=== PATIENT | female | born 1970 ===

== ENCOUNTER 2016-12-08 10:33 | Emergency (ER) | payer MEDICAID ==
--- NOTE | 2016-12-08 10:46 | ED PDOC ---
HPI: Psych/Substance Abuse Time Seen by Provider: 12/08/16 10:42 Chief Complaint (Nursing): Anxiety Chief Complaint (Provider): anxiety History Per: Patient, Family (Patient's daughter is at bedside, translating in Urdu for patient, at patient's request. ) Additional Complaint(s): 46 year old female with history of anxiety presents with dizziness, nausea and palpitations that started when she was driving earlier today. Patient states that she woke up with anxiety and took 0.5 mg tablet of lorazepam. As she was driving to work she started to develop dizziness, nausea and palpitations. Upon arrival she feels slightly dizzy but states that nausea and palpitations have subsided. Patient denies any chest pain. She also has mild pain to left leg, denies any trauma or injury. Associated fever or chills, no headache or vision changes. Patient is not sure what tripped anxiety as of waking up this morning. She denies any suicidal or homicidal ideation. Past Medical History Reviewed: Historical Data, Nursing Documentation, Vital Signs Vital Signs: Last Vital Signs Temp 98.1 F 12/08/16 10:34 Pulse 108 H 12/08/16 10:34 Resp 19 12/08/16 10:34 BP 158/96 H 12/08/16 10:34 Pulse Ox 98 12/08/16 10:34 - Medical History PMH: Anxiety - Surgical History Surgical History: No Surg Hx - Family History Family History: States: No Known Family Hx - Living Arrangements Living Arrangements: With Family - Social History Current smoker - smoking cessation education provided: No Alcohol: None Drugs: Denies - Home Medications Home Medications: Ambulatory Orders Medication Instructions Recorded LORazepam [Ativan] 0.5 mg PO DAILY PRN 12/08/16 - Allergies Allergies/Adverse Reactions: Allergies Allergy/AdvReac Type Severity Reaction Status Date / Time No Known Allergies Allergy Verified 12/08/16 11:03 Review of Systems ROS Statement: Except As Marked, All Systems Reviewed And Found Negative Constitutional: Negative for: Fever, Chills, Weakness Eyes: Negative for: Vision Change Cardiovascular: Positive for: Palpitations. Negative for: Chest Pain Respiratory: Negative for: Cough, Shortness of Breath Gastrointestinal: Positive for: Nausea Neurological: Positive for: Dizziness. Negative for: Headache Psych: Positive for: Anxiety. Negative for: Suicidal ideation Physical Exam - Reviewed Nursing Documentation Reviewed: Yes Vital Signs Reviewed: Yes - Physical Exam Skin: Positive for: Normal Color. Negative for: Rash Eye Exam: Positive for: Normal appearance, EOMI, PERRL Neck: Positive for: Painless ROM Cardiovascular/Chest: Positive for: Regular Rate, Rhythm Respiratory: Positive for: Normal Breath Sounds Back: Positive for: Vertebral Tenderness Extremity: Positive for: Normal ROM. Negative for: Pedal Edema, Calf Tenderness , Deformity, Swelling Neurologic/Psych: Positive for: Alert, Oriented - Laboratory Results Result Diagrams: 12/08/16 11:30 12/08/16 11:30 - ECG Interpretation Of ECG: NSR 69 bpm, no acute finding, reviewed by PA and ED attending. O2 Sat by Pulse Oximetry: 98 Pulse Ox Interpretation: Normal - Other Rad bedside chest X-Ray: Interpreted by Me, Viewed By Me X-Ray Interpretation: no acute finding Medical Decision Making Medical Decision Makin46 year old with anxiety Plan: CBC CMP Trop CXR EKG IVF 0.5 mg PO ativan Patient was offered crisis consult but she declined, she denies SI/HI. Upon re-evaluation, patient is feeling much better, she states dizziness and palpitations have completely resolved. Patient has ativan that she can take for any further anxiety symptoms. She was advised to take med as directed as needed and to follow up with PMD in 1-2 days. Patient is aware that she can RTED at any time if acutely worse. Repeat vitals prior to d/c are improved. Disposition - Clinical Impression Clinical Impression: Anxiety, Anxiety attack - Patient ED Disposition Is Patient to be Admitted: No Counseled Patient/Family Regarding: Studies Performed, Diagnosis, Need For Followup - Disposition Referrals: [facility] [Outside] Disposition: Routine/Home Disposition Time: 14:04 Condition: STABLE Additional Instructions: Rest and drink plenty of fluids. Take ativan as needed. Follow up with primary care doctor in 1-2 days or return any time if acutely worse. Instructions: Panic Attack (ED), Anxiety (ED) Print Language: GERMAN
[2016-12-08] MEDS ORDERED: Sodium Chloride 0.9% 1,000 ML IV STA (11:05)
[2016-12-08 11:56] LABS: BASO % 0.5 % (0.0-2.0); EOS # 0.1 K/uL (0.0-0.7); EOS % 1.2 % (0.0-4.0); HEMATOCRIT 38.7 % (34.0-47.0); LYMPH % 32.2 % (20.0-40.0); MEAN CELL VOLUME 85.1 fl (81.0-99.0); MEAN CORPUSCULAR HEMOGLOBIN 28.8 pg (27.0-31.0); MEAN CORPUSCULAR HGB CONC 33.8 g/dL (33.0-37.0); MEAN PLATELET VOLUME 8.5 fl (7.2-11.7); MONO # 0.5 K/uL (0.0-0.8); MONO % 8.3 % (0.0-10.0); NEUT # 3.6 K/uL (1.8-7.0); NEUT % 57.8 % (50.0-75.0); NRBC % 0.1 % (0.0-0.0); RED CELL DISTRIBUTION WIDTH 14.3 % (11.5-14.5); WHITE BLOOD COUNT 6.2 K/uL (4.8-10.8)
[2016-12-08 12:10] LABS: ALB/GLOB RATIO 1.2 (1.0-2.1); ALKALINE PHOSPHATASE 91 U/L (38-126); ALT/SGPT 47 U/L (9-52); AST/SGOT 44 U/L (14-36); BILIRUBIN,TOTAL 0.5 mg/dl (0.2-1.3); BLOOD UREA NITROGEN 12 mg/dl (7-17); CALCIUM 9.2 mg/dL (8.4-10.2); CARBON DIOXIDE 25 mmol/L (22-30); CHLORIDE 106 mmol/L (98-107); GFR AFRICAN-AMERICAN > 60; GLUCOSE,RANDOM 98 mg/dL (65-105); POTASSIUM 4.3 MMOL/L (3.6-5.0); SODIUM 144 mmol/l (132-148); TOTAL PROTEIN 8.2 G/DL (6.3-8.2)
[2016-12-08 14:18] VITALS: BP 126/84; PULSE 98; RESP 18; TEMP 98
[2016-12-08 14:23] VITALS: O2SAT 98
--- NOTE | 2016-12-08 14:28 | RAD ---
HISTORY: palpitations COMPARISON: No prior. FINDINGS: LUNGS: The lungs are clear. PLEURA: No significant pleural effusion identified, no pneumothorax apparent. CARDIOVASCULAR: Normal. OSSEOUS STRUCTURES: No significant abnormalities. VISUALIZED UPPER ABDOMEN: Normal. OTHER FINDINGS: None. IMPRESSION: No active pulmonary disease.
--- NOTE | 2016-12-08 19:58 | CARD ---
APPROVED REPORT EKG Measurement Heart [id number] <Conclusion> Normal sinus rhythm Normal ECG
== END 2016-12-08 14:30 | disposition home or self-care (01) ==
LOC: H.ER 10:33
DX: F41.9 Anxiety disorder, unspecified (principal)